=== PATIENT | female | born 1975 | race Caucasian/White ===

== ENCOUNTER → 2019-11-09 14:58 | Outpatient (BNVA) | payer OTHER, SELFPAY | PROVIDERS: Family Provider Nurse Practitioner Family; PCP Nurse Practitioner Family; Visit Provider Nurse Practitioner Women's Health | DX: Z11.3 Encounter for screening for infections with a predominantly sexual mode of transmission (principal); N76.0 Acute vaginitis; B96.89 Other specified bacterial agents as the cause of diseases classified elsewhere | CPT/HCPCS: 87491; 87591; 87661 ==

== ENCOUNTER 2020-04-14 08:20 | Outpatient (CLI) | payer OTHER, SELFPAY ==
--- NOTE | 2020-04-14 08:30 | MM_ITS ---
WS: [id number] BILATERAL DIGITAL SCREENING MAMMOGRAPHY WITH CAD CLINICAL INFORMATION: SCREENING HISTORY: Screening mammogram. No current complaints. COMPARISON: None. TECHNIQUE: Bilateral CC and MLO views. FINDINGS: The breasts are composed of heterogeneous fibroglandular density tissue, which can limit the detectio n of small underlying mass lesions. No suspicious mass, asymmetry, calcifications, or architectural d istortion. No evidence of malignancy. MM/[id number] IMPRESSION: BI-RADS: 1-Negative FOLLOW UP: 1 Year Follow-up Recommend return to annual screening mammography.
== END 2020-04-14 08:21 | disposition home or self-care (01) ==
LOC: RADSHAW 08:27
PROVIDERS: PCP Family Medicine; Visit Provider Family Medicine
DX: Z12.31 Encounter for screening mammogram for malignant neoplasm of breast (principal)
CPT/HCPCS: 77067

== ENCOUNTER → 2020-09-06 16:50 | Outpatient (BNVA) | payer OTHER, SELFPAY | PROVIDERS: PCP Family Medicine; Visit Provider Nurse Practitioner Women's Health | DX: Z11.3 Encounter for screening for infections with a predominantly sexual mode of transmission (principal); N89.8 Other specified noninflammatory disorders of vagina | CPT/HCPCS: 87491; 87591; 87661 ==

== ENCOUNTER → 2020-10-12 08:36 | Outpatient (BNVA) | payer OTHER, SELFPAY | PROVIDERS: PCP Family Medicine; Visit Provider Psychiatry & Neurology Neurology | DX: F41.1 Generalized anxiety disorder (principal) | CPT/HCPCS: 90791 ==

== ENCOUNTER → 2020-11-20 09:28 | Outpatient (BNVA) | payer OTHER, SELFPAY | PROVIDERS: PCP Family Medicine; Visit Provider Counselor Professional | DX: F41.1 Generalized anxiety disorder (principal) | CPT/HCPCS: 90834 ==

== ENCOUNTER → 2020-11-28 09:04 | Outpatient (BNVA) | payer OTHER, SELFPAY | PROVIDERS: PCP Family Medicine; Visit Provider Counselor Professional | DX: F41.1 Generalized anxiety disorder (principal) | CPT/HCPCS: 90834 ==

== ENCOUNTER → 2020-12-05 13:00 | Outpatient (BNVA) | payer OTHER, SELFPAY | PROVIDERS: PCP Family Medicine; Visit Provider Counselor Professional | DX: F41.1 Generalized anxiety disorder (principal) | CPT/HCPCS: 90834 ==

== ENCOUNTER → 2020-12-21 08:29 | Outpatient (BNVA) | payer OTHER, SELFPAY | PROVIDERS: PCP Family Medicine; Visit Provider Counselor Professional | DX: F41.1 Generalized anxiety disorder (principal) | CPT/HCPCS: 90834 ==

== ENCOUNTER → 2021-01-04 08:05 | Outpatient (BNVA) | payer OTHER, SELFPAY | PROVIDERS: PCP Family Medicine; Visit Provider Counselor Professional | DX: F41.1 Generalized anxiety disorder (principal) | CPT/HCPCS: 90834 ==

== ENCOUNTER → 2021-01-16 08:14 | Outpatient (BNVA) | payer OTHER, SELFPAY | PROVIDERS: PCP Family Medicine; Visit Provider Counselor Professional | DX: F41.1 Generalized anxiety disorder (principal) | CPT/HCPCS: 90834 ==

== ENCOUNTER → 2021-01-31 08:37 | Outpatient (BNVA) | payer OTHER, SELFPAY | PROVIDERS: PCP Family Medicine; Visit Provider Counselor Professional | DX: F41.1 Generalized anxiety disorder (principal) | CPT/HCPCS: 90834 ==

== ENCOUNTER → 2021-02-22 08:07 | Outpatient (BNVA) | payer OTHER, SELFPAY | PROVIDERS: PCP Family Medicine; Visit Provider Counselor Professional | DX: F41.1 Generalized anxiety disorder (principal) | CPT/HCPCS: 90834 ==

== ENCOUNTER → 2021-06-26 16:06 | Outpatient (BNVA) | payer OTHER, SELFPAY | PROVIDERS: PCP Family Medicine; Visit Provider Family Medicine | DX: Z11.52 Encounter for screening for COVID-19 (principal); Z20.822 Contact with and (suspected) exposure to COVID-19 | CPT/HCPCS: 87426 ==

== ENCOUNTER → 2021-07-12 08:15 | Outpatient (BNVA) | payer OTHER, SELFPAY | PROVIDERS: PCP Family Medicine; Visit Provider Nurse Practitioner Family | DX: Z20.822 Contact with and (suspected) exposure to COVID-19 (principal) | CPT/HCPCS: 87426 ==

== ENCOUNTER → 2021-08-15 09:19 | Outpatient (BNVA) | payer OTHER, SELFPAY | PROVIDERS: Visit Provider Family Medicine | DX: D50.9 Iron deficiency anemia, unspecified (principal); E03.9 Hypothyroidism, unspecified; F41.9 Anxiety disorder, unspecified; I10 Essential (primary) hypertension; Z76.89 Persons encountering health services in other specified circumstances; Z12.31 Encounter for screening mammogram for malignant neoplasm of breast; Z12.11 Encounter for screening for malignant neoplasm of colon; Z71.3 Dietary counseling and surveillance; Z79.899 Other long term (current) drug therapy | CPT/HCPCS: 80053; 80061; 84443; 85025 ==

== ENCOUNTER 2021-08-22 08:15 | Outpatient (CLI) | payer OTHER, SELFPAY ==
--- NOTE | 2021-08-22 08:30 | MM_ITS ---
WS: [id number] BILATERAL DIGITAL SCREENING MAMMOGRAPHY WITH CAD CLINICAL INFORMATION: Breast CA screening. HISTORY: Screening mammogram. No current complaints. COMPARISON: April 14, 2020 TECHNIQUE: Bilateral CC and MLO views. FINDINGS: Scattered fibroglandular densities bilaterally. No suspicious focal mass, asymmetry, calcifications, or architectural distortion. No evidence of malignancy. MM/[id number] IMPRESSION: BI-RADS: 1-Negative FOLLOW UP: 1 Year Follow-up Recommend return to annual screening mammography.
== END 2021-08-22 08:16 | disposition home or self-care (01) ==
PROVIDERS: PCP Family Medicine; Visit Provider Family Medicine
DX: Z12.31 Encounter for screening mammogram for malignant neoplasm of breast (principal)
CPT/HCPCS: 77067

== ENCOUNTER → 2021-11-07 13:51 | Outpatient (BNVA) | payer OTHER, SELFPAY | PROVIDERS: PCP Family Medicine; Visit Provider Family Medicine | DX: Z20.828 Contact with and (suspected) exposure to other viral communicable diseases (principal) | CPT/HCPCS: 87635 ==

== ENCOUNTER 2021-11-23 06:27 | Day surgery (SDC) | payer OTHER, SELFPAY ==
[2021-11-21 13:37] VITALS: BMI 35.9
[2021-11-23 06:43] VITALS: BP 135/106; PULSE 122; RESP 16; TEMP 36.3; O2SAT 98
--- NOTE | 2021-11-23 06:53 | ANES.PREANE2 ---
Pre-Anesthetic Assessment Height/Weight: Height 1.55 m Weight 86.183 kg Temp Pulse Resp BP Pulse Ox 97.4 F L 122 H 16 135/106 98 11/23/21 06:43 11/23/21 06:43 11/23/21 06:43 11/23/21 06:43 11/23/21 06:43 Preop Diagnosis: diagnostic Operation Date: 11/23/21 07:30 Proposed Procedures p Colonoscopy 89239 Z12.11(Not Applicable) - Kenneth Horne MD Was Beta Nicanor taken within 24 hours: Yes Was Clonidine taken within 24 hours: N/A Last intake: Intake Last Liquid Date 11/22/21 Last Liquid Time 22:30 Last Solid Date 11/21/21 Last Solid Time 20:30 Social No alcohol and No tobacco Exam alert and oriented x 3 Pulmonary Cough and None reported CV/HEM Hypertension PE 2019 None reported Hepatic None reported GI None reported Metabolic Thyroid Disease [facility] [place] None reported Neuropsych Anxiety Anesthetic Plan ASA status: 3 Anesthesia: Anesthesia Evaluation and MAC Risk of > 500 ml blood loss (7ml/kg in children): No Medications/Allergies Home Medications Medication Instructions Recorded Confirmed Last Taken Type meclizine 25 mg tablet 25 mg PO BID PRN 10 Days #20 tab 06/17/21 11/23/21 11/22/21 Rx naltrexone 8 mg-bupropion 90 mg 1 tab PO QAM #30 tab 08/15/21 11/23/21 11/22/21 Rx tablet,extended release (Contrave) buspirone 5 mg tablet 5 mg PO BID #180 tab 09/18/21 11/23/21 11/22/21 Rx chlorthalidone 25 mg tablet 25 mg PO DAILY #90 tab 09/18/21 11/23/21 11/22/21 Rx citalopram 40 mg tablet (Celexa) 40 mg PO DAILY #90 tab 09/18/21 11/23/21 11/22/21 Rx levothyroxine 150 mcg tablet 150 mcg PO DAILY #90 tab 09/18/21 11/23/21 11/22/21 Rx metoprolol succinate 25 mg 25 mg PO DAILY #90 tab 09/18/21 11/23/21 11/23/21 Rx tablet,extended release 24 hr sumatriptan succinate 100 mg 100 mg PO Q2H PRN #20 tab 0111/23/21 11/22/21 Rx tablet (Imitrex) Allergies Allergy/AdvReac Type Severity Reaction Status Date / Time No Known Allergies Allergy Verified 11/23/21 06:42 [facility] Anesthesia Medical History (Updated 09/12/21 @ 08:08 by Ozzie Alvares DO) Depression with anxiety History of pulmonary embolism Hypertension Hypothyroidism Migraines Vitamin A deficiency Surgical History History of bone marrow biopsy 2018-- negative for findings History of carpal tunnel surgery History of section History of total abdominal hysterectomy (~2018) LAVH converted to EVER with diagnostic laparoscopy; Ovaries sparred Completed due to fibroids Hx of tonsillectomy S/P cryotherapy of skin lesion Family History Mother Hypertension Family history of thyroid problem Father Hypertension Diabetes Grandfather No problems noted. Grandmother Diabetes Maternal grandmother Denies family history of Colon cancer Ovarian cancer CAD (coronary artery disease) Breast cancer Cancer Uterine cancer Stroke Social History Smoking and tobacco status: never smoked Alcohol intake: current Alcohol intake frequency: holidays/special occasions only Current gender identity: Female Additional social history: Tobacco use: denies Alcohol use: socially Drug use: denies Data Anesthesia Cardiac Studies: No Data to Display
[2021-11-23] MEDS: sodium chloride 0.9% 1,000 ML 30 ML IV (06:57)
--- NOTE | 2021-11-23 07:27 | P.HP_ITS ---
Same Day Surgery H&P Indication for Procedure/HPI DATE OF PROCEDURE: November 23, 2021 CHIEF COMPLAINT/INDICATIONFOR SURGICAL PROCEDURE: screening PREOP DIAGNOSIS: diagnostic PLANNED PROCEDURE: Operation Date: 11/23/21 07:30 Proposed Procedures p Colonoscopy 81474 Z12.11(Not Applicable) - Kenneth Horne MD Medications/Allergies* Allergies/Adverse Reactions Allergy/AdvReac Type Severity Reaction Status Date / Time No Known Allergies Allergy Verified 11/23/21 06:42 Current Medications: Generic Name Dose Route Start Last Admin Trade Name Freq PRN Reason Stop Dose Admin Sodium Chloride 1,000 mls @ 30 mls/hr 11/23/21 06:30 11/23/21 06:57 Sodium Chloride 0.9% IV 11/24/21 06:29 30 mls/hr .Q24H ENMANUEL Administration Pertinent History/Comorbid Conditions* Medical History (Updated 09/12/21 @ 08:08 by Ozzie Alvares DO) Depression with anxiety History of pulmonary embolism Hypertension Hypothyroidism Migraines Vitamin A deficiency Surgical History (Updated 09/06/20 @ 17:20 by OTIS WashburnN, WHKONG) History of bone marrow biopsy 2018-- negative for findings History of carpal tunnel surgery History of section History of total abdominal hysterectomy (~2019) LAVH converted to EVER with diagnostic laparoscopy; Ovaries sparred Completed due to fibroids Hx of tonsillectomy S/P cryotherapy of skin lesion Family History (Updated 09/06/20 @ 15:52 by Светлана Tellez) Diabetes Father Grandmother Maternal grandmother Family history of thyroid problem Mother Hypertension Mother Father Denies family history of Colon cancer Ovarian cancer CAD (coronary artery disease) Breast cancer Cancer Uterine cancer Stroke Social History Smoking and tobacco status: never smoked Alcohol intake: current Alcohol intake frequency: holidays/special occasions only Current gender identity: Female Additional social history: Tobacco use: denies Alcohol use: socially Drug use: denies Pertinent Exam Findings alert, oriented x 3 and regular rate & rhythm Recommendations Surgery/Procedure today Coding Level of Care Code Acute 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
[2021-11-23 07:53] VITALS: BP 110/57; PULSE 71; RESP 12; TEMP 36.2; O2SAT 93
[2021-11-23 08:23] VITALS: BP 117/70; PULSE 77; RESP 16; O2SAT 100
--- NOTE | 2021-11-23 12:16 | ANE.PACU2 ---
Inpatient post-anesthesia follow up: Airway intact: Yes Vital signs: Temperature 97.2 F Pulse Rate 77 Respiratory Rate 16 Blood Pressure 117/70 Pulse Oximetry 100 Oxygen Delivery Me thod Room Air Oxygen Flow Rate Fraction of Inspir ed Oxygen Hydration adequate: Yes Nausea and vomiting: No Pain level: 1 Mental status: Baseline
== END 2021-11-23 08:35 | disposition home or self-care (01) ==
PROVIDERS: PCP Family Medicine; Visit Provider Surgery
PROC: 0DJD8ZZ Inspection of Lower Intestinal Tract, Via Natural or Artificial Opening Endoscopic (ICD-10-PCS; CPT 45378; principal; 2021-11-23 07:30)
DX: Z12.11 Encounter for screening for malignant neoplasm of colon (principal); I10 Essential (primary) hypertension; E03.9 Hypothyroidism, unspecified; F32.9 Major depressive disorder, single episode, unspecified; F41.9 Anxiety disorder, unspecified
CPT/HCPCS: 45378; J2704; J7030

== ENCOUNTER 2022-03-12 08:39 | Outpatient (CLI) | payer OTHER, SELFPAY ==
[2022-03-12 09:38] LABS: Free T4 Free Thyroxine 1.77 ng/dL (0.82-1.77); Thyroid Stimulating Hormone 0.05 uIU/mL (0.27-4.20)
== END 2022-03-12 08:40 | disposition home or self-care (01) ==
PROVIDERS: PCP Family Medicine; Visit Provider Family Medicine
DX: E03.9 Hypothyroidism, unspecified (principal); I10 Essential (primary) hypertension; R63.4 Abnormal weight loss; Z71.3 Dietary counseling and surveillance
CPT/HCPCS: 36415; 84439; 84443

== ENCOUNTER 2022-07-24 13:33 | Outpatient (CLI) | payer OTHER, SELFPAY ==
[2022-07-24 14:51] LABS: Alanine Aminotransferase 22 U/L (0-33); Albumin Level 4.3 g/dL (3.5-5.2); Alkaline Phosphatase 104 U/L (35-105); Anion Gap 17.5 (5-19); Aspartate Amino Transferase 24 U/L (0-32); Blood Urea Nitrogen 13 mg/dL (6-20); Calcium 9.5 mg/dL (8.5-10.5); Carbon Dioxide 31 mmol/L (22-29); Chloride 96 mmol/L (98-107); Chol HDL Ratio 4.47 mg/dL (0.0-4.40); Cholesterol 237 mg/dL (0-200); Free T4 Free Thyroxine 0.54 ng/dL (0.82-1.77); Globulin 3.1 g/dL (1.3-4.6); Glomerular Filtration Rate 76.9 mL/min (90-130); Glucose 114 mg/dL (65-115); HDL Cholesterol 53 mg/dL (60-100); LDL Cholesterol Calculated 133 mg/dL (50-129); LDL HDL Ratio 2.51 RATIO (0.00-3.22); Osmolality Calculated 293 mOsm/kg (285-295); Potassium 3.5 mmol/L (3.5-5.1); Sodium 141 mmol/L (136-145); Thyroid Stimulating Hormone 22.34 uIU/mL (0.27-4.20); Total Bilirubin 0.4 mg/dL (0.15-1.2); Total Protein 7.4 g/dL (6.6-8.7); Triglycerides 255 mg/dL (0-150)
== END 2022-07-24 13:34 | disposition home or self-care (01) ==
LOC: LAB 13:36
PROVIDERS: PCP Family Medicine; Visit Provider Family Medicine
DX: E03.9 Hypothyroidism, unspecified (principal); I10 Essential (primary) hypertension; F41.9 Anxiety disorder, unspecified; Z13.220 Encounter for screening for lipoid disorders; Z13.6 Encounter for screening for cardiovascular disorders
CPT/HCPCS: 80053; 80061; 84439; 84443

== ENCOUNTER → 2022-10-06 16:40 | Outpatient (BNVA) | payer OTHER, SELFPAY | PROVIDERS: PCP Family Medicine; Visit Provider Registered Nurse Neonatal Intensive Care | DX: R50.9 Fever, unspecified (principal); J10.1 Influenza due to other identified influenza virus with other respiratory manifestations | CPT/HCPCS: 87400 ==

== ENCOUNTER → 2022-11-25 08:33 | Outpatient (BNVA) | payer OTHER, SELFPAY | PROVIDERS: PCP Family Medicine; Visit Provider Family Medicine | DX: E03.9 Hypothyroidism, unspecified (principal); I10 Essential (primary) hypertension; F41.9 Anxiety disorder, unspecified; Z13.220 Encounter for screening for lipoid disorders; Z13.6 Encounter for screening for cardiovascular disorders | CPT/HCPCS: 80048; 80053; 80061; 84439; 84443 ==

== ENCOUNTER 2023-01-15 07:46 | Outpatient (CLI) | payer OTHER, SELFPAY ==
--- NOTE | 2023-01-15 08:07 | MM_ITS ---
WS: [id number] BILATERAL SCREENING DIGITAL TOMOSYNTHESIS MAMMOGRAM WITH CAD HISTORY: SCREEN COMPARISON: 08/22/2021 and 04/14/2020 Bilateral CC and MLO views with tomosynthesis and synthetic mammography submitted. Computer aided det ection analyzed. Breast composition: The breasts are heterogeneously dense, which may obscure small masses. No suspici ous masses, microcalcifications or architectural distortion. MM/[place] [id number] IMPRESSION: BI-RADS: 1-Negative FOLLOW UP: 1 Year Follow-up
== END 2023-01-15 07:47 | disposition home or self-care (01) ==
PROVIDERS: PCP Family Medicine; Visit Provider Family Medicine
DX: Z12.31 Encounter for screening mammogram for malignant neoplasm of breast (principal)
CPT/HCPCS: 77063; 77067

== ENCOUNTER 2023-05-15 13:06 | Outpatient (CLI) | payer OTHER, SELFPAY ==
[2023-05-15 14:14] LABS: Anion Gap 13.1 (5-19); Blood Urea Nitrogen 8 mg/dL (6-20); Calcium 8.9 mg/dL (8.5-10.5); Carbon Dioxide 27 mmol/L (22-29); Chloride 101 mmol/L (98-107); Glomerular Filtration Rate 76.9 mL/min (90-130); Glucose 107 mg/dL (65-115); Osmolality Calculated 283 mOsm/kg (285-295); Potassium 4.1 mmol/L (3.5-5.1); Sodium 137 mmol/L (136-145)
[2023-05-15 14:20] LABS: Free T4 Free Thyroxine 0.54 ng/dL (0.82-1.77)
== END 2023-05-15 13:07 | disposition home or self-care (01) ==
PROVIDERS: PCP Family Medicine; Visit Provider Family Medicine
DX: E03.9 Hypothyroidism, unspecified (principal); I10 Essential (primary) hypertension; D50.9 Iron deficiency anemia, unspecified
CPT/HCPCS: 36415; 80048; 84439

== ENCOUNTER 2023-06-27 08:51 | Outpatient (CLI) | payer OTHER, SELFPAY ==
[2023-06-27 10:15] LABS: Free T4 Free Thyroxine 1.46 ng/dL (0.82-1.77); Thyroid Stimulating Hormone 0.67 uIU/mL (0.27-4.20)
== END 2023-06-27 08:52 | disposition home or self-care (01) ==
PROVIDERS: PCP Family Medicine; Visit Provider Family Medicine
DX: E03.9 Hypothyroidism, unspecified (principal)
CPT/HCPCS: 36415; 84439; 84443

== ENCOUNTER → 2023-12-16 08:11 | Outpatient (BNVA) | payer OTHER, SELFPAY | PROVIDERS: PCP Family Medicine; Visit Provider Family Medicine | DX: I10 Essential (primary) hypertension (principal) | CPT/HCPCS: 80048; 80061; 84443 ==

== ENCOUNTER 2024-02-25 07:42 | Outpatient (CLI) | payer OTHER, SELFPAY ==
--- NOTE | 2024-02-25 07:47 | MM_ITS ---
WS: [id number] BILATERAL SCREENING DIGITAL TOMOSYNTHESIS MAMMOGRAM WITH CAD HISTORY: SCREENING COMPARISON: 01/15/2023, 08/22/2021 Bilateral CC and MLO views with tomosynthesis and synthetic mammography submitted. Computer aided det ection analyzed. Breast composition: The breasts are heterogeneously dense, which may obscure small masses. No suspici ous masses, microcalcifications or architectural distortion. MM/[id number] IMPRESSION: BI-RADS: 1-Negative FOLLOW UP: 1 Year Follow-up
== END 2024-02-25 07:43 | disposition home or self-care (01) ==
PROVIDERS: PCP Family Medicine; Visit Provider Family Medicine
DX: Z12.31 Encounter for screening mammogram for malignant neoplasm of breast (principal); R92.333 Mammographic heterogeneous density, bilateral breasts
CPT/HCPCS: 77063; 77067

== ENCOUNTER → 2024-08-25 11:00 | Outpatient (BNVA) | payer OTHER, SELFPAY | PROVIDERS: PCP Family Medicine; Visit Provider Family Medicine | DX: R79.89 Other specified abnormal findings of blood chemistry (principal); I10 Essential (primary) hypertension; E03.9 Hypothyroidism, unspecified; G47.33 Obstructive sleep apnea (adult) (pediatric); E55.9 Vitamin D deficiency, unspecified; N95.1 Menopausal and female climacteric states | CPT/HCPCS: 80053; 80061; 82306; 82607; 84439; 84443; 85025 ==

== ENCOUNTER 2024-09-06 08:25 | Outpatient (CLI) | payer OTHER, SELFPAY ==
[2024-09-06 08:58] LABS: Anion Gap 13.8 (5-19); Blood Urea Nitrogen 10 mg/dL (6-20); Carbon Dioxide 30 mmol/L (22-29); Chloride 95 mmol/L (98-107); Glomerular Filtration Rate 88.9 mL/min (90-130); Glucose 150 mg/dL (65-115); Osmolality Calculated 284 mOsm/kg (285-295); Sodium 136 mmol/L (136-145)
[2024-09-06 09:18] LABS: Potassium 2.8 mmol/L (3.5-5.1)
== END 2024-09-06 08:26 | disposition home or self-care (01) ==
LOC: LAB 08:25
PROVIDERS: PCP Family Medicine; Visit Provider Family Medicine
DX: E87.6 Hypokalemia (principal)
CPT/HCPCS: 36415; 80048

== ENCOUNTER 2024-09-13 08:11 | Outpatient (CLI) | payer OTHER, SELFPAY ==
[2024-09-13 09:04] LABS: Estmated Average Glucose 114; Hemoglobin A1C 5.6 % (4.0-6.0)
[2024-09-13 09:05] LABS: Blood Urea Nitrogen 11 mg/dL (6-20); Calcium 9.5 mg/dL (8.5-10.5); Carbon Dioxide 30 mmol/L (22-29); Chloride 94 mmol/L (98-107); Glomerular Filtration Rate 76.2 mL/min (90-130); Glucose 154 mg/dL (65-115); Osmolality Calculated 282 mOsm/kg (285-295); Sodium 135 mmol/L (136-145)
== END 2024-09-13 08:12 | disposition home or self-care (01) ==
LOC: LAB 08:12
PROVIDERS: PCP Family Medicine; Visit Provider Family Medicine
DX: E87.6 Hypokalemia (principal); R73.9 Hyperglycemia, unspecified
CPT/HCPCS: 36415; 80048; 83036

== ENCOUNTER 2024-10-11 08:17 | Outpatient (CLI) | payer OTHER, SELFPAY ==
[2024-10-11 09:40] LABS: Vitamin B12 358 pg/mL (232-1245)
== END 2024-10-11 08:18 | disposition home or self-care (01) ==
LOC: LAB 08:19
PROVIDERS: PCP Family Medicine; Visit Provider Family Medicine
DX: R79.89 Other specified abnormal findings of blood chemistry (principal); I10 Essential (primary) hypertension; E03.9 Hypothyroidism, unspecified; G47.33 Obstructive sleep apnea (adult) (pediatric)
CPT/HCPCS: 36415; 82607; 84132

== ENCOUNTER 2024-10-25 08:25 | Emergency (ER) | payer OTHER, SELFPAY ==
[2024-10-25 08:37] VITALS: BP 172/78; PULSE 92; RESP 19; TEMP 36.6; O2SAT 97; BMI 39.6
--- NOTE | 2024-10-25 08:40 | ED_ITS ---
HPI - Headache General: Chief Complaint: Headache Stated Complaint: migraine Time Seen by Provider: 10/25/24 08:33 Source: patient Mode of arrival: ambulatory Limitations: no limitations History of Present Illness: 49-year-old female has a history of migr aines in the past states she has had a migraine headache since this morning states pain sharp in nature she is also had vomiting states she had vomited up her migraine medicine she denies any fever states feels like her previous migraine headaches. She does have photophobia and phonophobia Associated symptoms: Deny chest pain, fever(s), nausea, rash or vomiting Related Data Home Medications Medication Instructions Recorded Confirmed buspirone 5 mg tablet 5 mg PO BID 10/25/24 10/25/24 citalopram 40 mg tablet 40 mg PO DAILY 10/25/24 10/25/24 levothyroxine 150 mcg tablet 150 mcg PO DAILY 10/25/24 10/25/24 metoprolol succinate 25 mg 25 mg PO DAILY 10/25/24 10/25/24 tablet,extended release 24 hr sumatriptan succinate 100 mg tablet See Rx Instructions .Route .COMPLEX 10/25/24 10/25/24 Previous Rx's Medication Instructions Recorded potassium chloride 10 mEq 10 meq PO DAILY #30 tabs 09/27/24 tablet,extended release Allergies Allergy/AdvReac Type Severity Reaction Status Date / Time No Known Allergies Allergy Verified 08/25/24 08:29 Review of Systems Const: Denies: fever(s), chills, body aches or change in appetite Eyes: Denies: blurry vision or eye discomfort ENMT: Denies: throat pain or dental pain Card: Denies: chest pain Resp: Denies: dyspnea GI: Denies: abdominal pain, nausea, vomiting or diarrhea Musc: Denies: neck pain or back pain Skin/Breast: Denies: rash Neuro: Reports: headache(s) PFSH ED PFSH: Medical History Depression with anxiety Hypothyroidism Hypertension Migraines History of pulmonary embolism Vitamin A deficiency Surgical History Status post colonoscopy (11/23/21) normal - 10 years History of bone marrow biopsy 2018-- negative for findings S/P cryotherapy of skin lesion History of section History of total abdominal hysterectomy (~2018) LAVH converted to EVER with diagnostic laparoscopy; Ovaries sparred Completed due to fibroids Hx of tonsillectomy History of carpal tunnel surgery Family History Mother Hypertension Family history of thyroid problem Father Hypertension Diabetes Grandfather No problems noted. Grandmother Diabetes Maternal grandmother Denies family history of Colon cancer Ovarian cancer CAD (coronary artery disease) Breast cancer Cancer Uterine cancer Stroke Social History Smoking and tobacco/nicotine status: never used tobacco/nicotine Alcohol intake: current Alcohol intake frequency: holidays/special occasions only Substance/Drug Use: never Additional social history: Tobacco use: denies Alcohol use: socially Drug use: denies Current gender identity: Female Female Reproductive History: Spontaneous abortions: No Physical Exam Const: COMMON NORMALS: no acute distress, patient oriented x3 and healthy appearing HENMT: COMMON NORMALS: normocephalic and atraumatic HEAD & SCALP: normocephalic and atraumatic Eye: COMMON NORMALS: Equal, round and reactive pupils present and conjunctivae normal CONJUNCTIVA: Yes conjunctivae normal PUPIL: Yes Equal, round and reactive pupils present Neck/C-Spine: COMMON NORMALS: full ROM and supple Chest: COMMONS NORMALS: normal inspection of the chest Resp: COMMON NORMALS: normal respiratory effort Cardio: COMMON NORMALS: regular rate RATE: regular rate Extremity: COMMON NORMALS: normal to inspection and full ROM Neuro: COMMON NORMALS: patient oriented x3, moves all extremities and no focal motor deficits Psych: COMMON NORMALS: mental status grossly normal, Normal thought process present and cooperative THOUGHT PROCESS: Normal thought process present Skin: COMMON NORMALS: no rashes or lesions noted and no wounds GENERAL SKIN EXAM: no rashes or lesions noted Course Vital Signs: Vital signs: Vital Signs Temperature 97.9 F 10/25/24 08:37 Pulse Rate 92 10/25/24 08:37 Respiratory Rate 19 H 10/25/24 08:37 Blood Pressure 172/78 10/25/24 08:37 Pulse Oximetry 97 10/25/24 08:37 Oxygen Delivery Me thod Room Air 10/25/24 08:37 MDM - Headache Medical Decision Making Patient presents here with a headache consistent with a migraine headache she feels much improved here after Reglan Benadryl Toradol no signs of subarachnoid hemorrhage no signs of meningitis she is stable for discharge. Medical Records I reviewed the patient's medical records. No radiology studies performed this visit Discharge Plan Discharge Patient Disposition: Home Clinical Impression: Headache Condition: Stable Prescriptions: No Action potassium chloride 10 mEq tablet extended release 10 meq PO DAILY Qty: 30 5RF buspirone 5 mg tablet 5 mg PO BID citalopram 40 mg tablet 40 mg PO DAILY sumatriptan succinate 100 mg tablet See Rx Instructions .ROUTE .COMPLEX Rx Instructions: TAKE ONE TABLET BY MOUTH every TWO hours NEEDED FOR migraine HEADACHE. 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
[2024-10-25] MEDS: ketorolac 30 mg/mL INJ IVP (08:49)
[2024-10-25] MEDS: diphenhydrAMINE 50 mg/mL SDV 1mL IVP (08:51)
[2024-10-25] MEDS: metoclopramide 5 mg/mL SDV 2 mL 10 MG IVP (08:52)
--- NOTE | 2024-10-25 09:27 | PC.PHAR ---
Pt states she attempted to take morning meds but threw them up immediately.
[2024-10-25 09:35] VITALS: BP 142/76; PULSE 76; O2SAT 95
[2024-10-25 09:38] VITALS: BP 142/76; PULSE 76; O2SAT 95
== END 2024-10-25 09:50 | disposition home or self-care (01) ==
PROVIDERS: Emergency Provider Emergency Medicine; PCP Family Medicine
DX: R51.9 Headache, unspecified (principal); I10 Essential (primary) hypertension
CPT/HCPCS: 96374; 96375; 99284; J1200; J1885; J2765

== ENCOUNTER → 2024-11-18 08:42 | Outpatient (BNVA) | payer BC, SELFPAY | PROVIDERS: PCP Family Medicine; Visit Provider Family Medicine | DX: R32 Unspecified urinary incontinence (principal); E87.6 Hypokalemia; E55.9 Vitamin D deficiency, unspecified; E03.9 Hypothyroidism, unspecified | CPT/HCPCS: 80048; 81003; 82306; 84439; 84443; 87086 ==

== ENCOUNTER 2025-04-25 16:09 | Outpatient (CLI) | payer OTHER, SELFPAY ==
[2025-04-25 17:03] LABS: Basophils % 0.4 %; Eosinophils # 0.3 10^3/uL (0.0-0.8); Eosinophils % 3.2 %; Hematocrit 39.4 % (36-47); Lymphocytes # 1.9 10^3/uL (0.8-4.8); Lymphocytes % 24.5 %; Mean Corpuscular HGB Conc 33.8 g/dL (30-55); Mean Corpuscular Hemoglobin 28.1 pg (27-33); Mean Corpuscular Volume 83.1 fl (85-98); Monocytes # 0.4 10^3/uL (0.2-0.9); Monocytes % 5.3 %; Neutrophils # 5.16 10^3/uL (1.8-7.7); Neutrophils % 66.5 %; Nucleated Red Blood Cells % 0 %; Platelet Count 276 10^3/cmm (157-399); Red Blood Count 4.74 10^6/uL (3.85-5.65); Red Cell Distribution Width 12.1 % (12.1-15.1); White Blood Count 7.76 10^3/uL (3.29-11.43)
[2025-04-25 18:02] LABS: Alanine Aminotransferase 11 U/L (0-33); Albumin Level 4.3 g/dL (3.5-5.2); Alkaline Phosphatase 76 U/L (35-105); Anion Gap 17.9 (5-19); Aspartate Amino Transferase 16 U/L (0-32); Blood Urea Nitrogen 12 mg/dL (6-20); Calcium 9.3 mg/dL (8.5-10.5); Carbon Dioxide 22 mmol/L (22-29); Chloride 103 mmol/L (98-107); Globulin 2.9 g/dL (1.3-4.6); Glomerular Filtration Rate 88.9 mL/min (90-130); Glucose 83 mg/dL (65-115); Lipase 33 U/L (13-60); Osmolality Calculated 287 mOsm/kg (285-295); Potassium 3.9 mmol/L (3.5-5.1); Sodium 139 mmol/L (136-145); Total Bilirubin 0.5 mg/dL (0.15-1.2); Total Protein 7.2 g/dL (6.6-8.7)
[2025-04-27 05:20] LABS: Amylase 63 U/L (21-101)
== END 2025-04-25 16:10 | disposition home or self-care (01) ==
PROVIDERS: PCP Family Medicine; Visit Provider Family Medicine
DX: R11.2 Nausea with vomiting, unspecified (principal); R10.11 Right upper quadrant pain; R10.13 Epigastric pain
CPT/HCPCS: 36415; 80053; 82150; 83690; 85025

== ENCOUNTER 2025-04-26 06:51 | Outpatient (CLI) | payer OTHER, SELFPAY ==
--- NOTE | 2025-04-26 07:15 | US_ITS ---
WS: [id number] RIGHT UPPER QUADRANT ULTRASOUND HISTORY: R10.11 - Right upper quadrant pain COMPARISON: 04/02/2019 Liver: 14.3 cm in length. Normal size liver and echogenicity. No bile duct dilatation or mass. Portal Vein: Normal hepatopetal flow with monophasic waveform. Gallbladder: Normally distended gallbladder with no stones or wall thickening. CBD: 0.3 cm Pancreas: Normal size and echogenicity. Right kidney: 9.0 cm in length. Normal size and echogenicity. No hydronephrosis or mass. Aorta and IVC: Unremarkable abdominal aorta and IVC. No ascites. US/US abdomen limited [id number] IMPRESSION: Normal right upper quadrant ultrasound.
== END 2025-04-26 06:52 | disposition home or self-care (01) ==
LOC: RAD 06:51
PROVIDERS: PCP Family Medicine; Visit Provider Family Medicine
DX: R10.11 Right upper quadrant pain (principal); R10.13 Epigastric pain; R11.2 Nausea with vomiting, unspecified
CPT/HCPCS: 76705

== ENCOUNTER 2025-05-03 07:33 | Outpatient (CLI) | payer OTHER, SELFPAY ==
--- NOTE | 2025-05-03 08:00 | NM_ITS ---
WS: [id number] NUCLEAR MEDICINE HIDA SCAN CLINICAL INFORMATION: biliary dyskinesia TECHNIQUE: Following intravenous administration of 7.9 mCi of technetium 99m mebrofenin, images of the abdomen were obtained over the course of 60 minutes. Next, gallbladder ejection fraction was determined by obtaining preprandial and one-hour postprandial images of the gallbladder following oral ingestion of Ensure. FINDINGS: Normal hepatic uptake at 5 minutes. Gallbladder is visualized by 15 minutes. No evidence of acute cholecystitis. Normal hepatic excretion. Normal common bile duct and small bowel activity. Gallbladder ejection fraction 90% within normal limits. No evidence of chronic cholecystitis. NM/NM hepatobiliary w phar* [id number] IMPRESSION: 1. No evidence of acute or chronic cholecystitis. 2. Normal gallbladder ejection fraction.
== END 2025-05-03 07:34 | disposition home or self-care (01) ==
LOC: RAD 07:33
PROVIDERS: PCP Family Medicine; Visit Provider Surgery
DX: K82.8 Other specified diseases of gallbladder (principal)
CPT/HCPCS: 78227; A9537

== ENCOUNTER 2025-05-16 09:55 | Day surgery (SDC) | payer OTHER, SELFPAY ==
[2025-05-16] VITALS (15 sets, daily range): BP systolic 89–163; BP diastolic 49–91; PULSE 79–95; RESP 16–24; TEMP 36.1–36.2; O2SAT 92–99; BMI 35.5
--- NOTE | 2025-05-16 10:41 | P.HPUD_ITS ---
Surgery/Procedure H&P Update DATE OF PROCEDURE: May 16, 2025 DATE H&P PERFORMED: 05/03/25 H&P UPDATE INFORMATION: I have reviewed H&P completed within last 30 days, I have examined patient prior to procedure, No changes to prior documentation, H&P is in [facility] EMR on date indicated and Risks and benefits of the procedure reviewed PLANNED PROCEDURE: Operation Date: 05/16/25 13:55 Proposed Procedures p Laparoscopic POSSIBLE OPEN Cholecystectomy(Not Applicable) - Gato Serrato MD
--- NOTE | 2025-05-16 10:55 | ANES.PREANE2 ---
Pre-Anesthetic Assessment Height/Weight: Height 1.55 m Weight 85.275 kg Temp Pulse Resp BP Pulse Ox O2 Del Method 97.1 F L 79 18 163/81 99 Room Air 05/16/25 10:39 05/16/25 10:39 05/16/25 10:39 05/16/25 10:39 05/16/25 10:39 05/16/25 10:39 Operation Date: 05/16/25 13:55 Proposed Procedures p Laparoscopic POSSIBLE OPEN Cholecystectomy(Not Applicable) - Gato Serrato MD Familial anesthetic complications: None Was Beta Nicanor taken within 24 hours: N/A Was Clonidine taken within 24 hours: N/A Last intake: Intake Last Liquid Date 05/15/25 Last Liquid Time 23:00 Last Solid Date 05/15/25 Last Solid Time 16:30 Social No alcohol and No tobacco Exam alert, oriented x 3, clear to auscultation bilaterally and regular rate & rhythm Airway Mallampati: Class III Dentition: chipped GI Gastroesophageal Reflux Disease Metabolic Morbid Obesity and Thyroid Disease Anesthetic Plan ASA status: 3 Anesthesia: General Risk of > 500 ml blood loss (7ml/kg in children): No Medications/Allergies Home Medications ?Medication ?Instructions ?Recorded ?Confirmed ?Last Taken ?Type potassium chloride 10 mEq 10 meq PO DAILY #30 tabs 09/27/24 05/13/25 05/15/25 07:30 Rx tablet,extended release buspirone 5 mg tablet 5 mg PO BID 10/25/24 05/13/25 05/15/25 09:30 History citalopram 40 mg tablet 40 mg PO DAILY 10/25/24 05/13/25 05/15/25 09:30 History sumatriptan succinate 100 mg tablet See Rx Instructions .Route .COMPLEX 10/25/24 05/13/25 05/15/25 07:30 History levothyroxine 150 mcg tablet See Rx Instructions .Route 02/17/25 05/13/25 05/15/25 09:30 Rx .COMPLEX #90 tabs metoprolol succinate 25 mg See Rx Instructions .Route 03/18/25 05/13/25 05/16/25 08:30 Rx tablet,extended release 24 hr .COMPLEX #90 tabs pantoprazole 40 mg tablet,delayed 40 mg PO DAILY #60 tabs 04/26/25 05/13/25 05/15/25 07:30 Rx release Allergies Allergy/AdvReac Type Severity Reaction Status Date / Time No Known Allergies Allergy Verified 05/03/25 15:19 Current Medications Generic Name Dose Route Start Last Admin Trade Name Kyle PRN Reason Stop Dose Admin Sodium Chloride 1,000 mls @ 30 mls/hr 05/16/25 10:45 05/16/25 10:52 Sodium Chloride 0.9% IV 05/17/25 10:44 30 mls/hr .Q24H ENMANUEL Administration PFSH Anesthesia Medical History (Updated 05/03/25 @ 15:26 by Gato Serrato MD) Depression with anxiety Hypothyroidism Hypertension Migraines History of pulmonary embolism Vitamin A deficiency Surgical History Status post colonoscopy (11/23/21) normal - 10 years History of bone marrow biopsy 2018-- negative for findings S/P cryotherapy of skin lesion History of section History of total abdominal hysterectomy (~2019) LAVH converted to EVER with diagnostic laparoscopy; Ovaries sparred Completed due to fibroids Hx of tonsillectomy History of carpal tunnel surgery Family History Mother Hypertension Family history of thyroid problem Father Hypertension Diabetes Grandfather No problems noted. Grandmother Diabetes Maternal grandmother Denies family history of Colon cancer Ovarian cancer CAD (coronary artery disease) Breast cancer Cancer Uterine cancer Stroke Social History Smoking and tobacco/nicotine status: never used tobacco/nicotine Alcohol intake: current Alcohol intake frequency: holidays/special occasions only Substance/Drug Use: never Additional social history: Tobacco use: denies Alcohol use: socially Drug use: denies Current gender identity: Female Female Reproductive History Spontaneous abortions: No
[2025-05-16] MEDS: ceFAZolin 2,000 mg SDV 2000 MG IVP (12:20)
[2025-05-16] MEDS: BUPivacaine 0.25% INJ 10 mL INJECTION (12:50)
[2025-05-16] MEDS: lidocaine-epi 1% 20 mL INJ INJECTION (12:50)
--- NOTE | 2025-05-16 13:19 | PM.OP ---
Operative Report Date of procedure: May 16, 2025 Pre-op diagnosis: History of biliary colic Post-op diagnosis: Same Post-op findings: Normal biliary anatomy Procedure done: Laparoscopic cholecystectomy Surgeon: Gato Serrato MD Cutter Machine Tender: JIMENA OR Staff Estimated blood loss: 10 Complications: none apparent Brief History: This a 49-year-old female who presents to my office for evaluation for right upper quadrant abdominal pain after eating, after workup was completed we discussed with patient the possibility of proceeding with laparoscopic possible open cholecystectomy for persistent right upper quadrant pain and biliary colic. She shows understanding agrees with the plan Procedure: Patient was brought into the OR, she was placed in a supine position. General anesthesia was given. The abdomen was prepped and draped in the usual sterile fashion. A timeout was conducted. I accessed the abdomen via a 5 mm Optiview port in the left upper quadrant. Initial pneumoperitoneum was obtained and no evidence of visceral injury during entry was noted. At 12 mm trocar was placed in the supraumbilical position under direct visualization. Additional 5 mm trocars were placed in the epigastrium right upper quadrant and right flank under direct visualization. The gallbladder was grasped from the fundus and retracted cephalad, I then grasped the infundibulum and retracted in the inferolateral direction exposing the hepatocystic triangle. The peritoneum anterior to the hepatocystic triangle was opened with electrocautery, I carried this opening in the medial and lateral direction to the edges of the liver and then on the sides of the gallbladder to allow for better exposure. With careful blunt dissection as well as electrocautery I was able to encircle the cystic duct and artery, I also elevated lower third of the gallbladder from the liver bed, thus creating a critical view of safety. The cystic duct and artery were double clipped proximally and single clipped distally and transected. The gallbladder was removed from the liver bed using electrocautery. The gallbladder was retrieved in an Endo Catch bag via the umbilical trocar site. The liver bed and clips were inspected the area was hemostatic, there was no evidence of bile leak the clips appeared to be in good position. The umbilical trocar was removed and umbilical trocar site was closed with a 0 Vicryl Alonzo-Jose suture passer under direct visualization. The epigastrium right upper quadrant right flank trocars were removed under direct visualization, the left upper quadrant trocar was used to evacuate the pneumoperitoneum and subsequently removed. Local anesthesia was infiltrated. Hemostasis was achieved from the trocar sites. The wounds were closed in layers using #3-0 Vicryl for the subcutaneous tissue #4 Monocryl for the skin. At the end of the procedure all counts were correct, the patient tolerated well the procedure was transferred to the PACU in stable condition.
[2025-05-16] MEDS: fentaNYL 50 mcg/mL INJ 2mL IVP ×2 (13:44→13:50)
[2025-05-16] MEDS: HYDROmorphone 1 mg/mL INJ 1ml 0.5 MG IVP (14:18)
[2025-05-16] MEDS: oxyCODONE 5 mg IR Tab/Cap PO (14:46)
--- NOTE | 2025-05-16 15:25 | ANE.PACU2 ---
Inpatient post-anesthesia follow up: Airway intact: Yes Vital signs: Temperature 97.1 F Pulse Rate 88 Respiratory Rate 16 Blood Pressure 114/91 Pulse Oximetry 94 Oxygen Delivery Me thod Room Air Oxygen Flow Rate 6 Fraction of Inspir ed Oxygen Hydration adequate: Yes Nausea and vomiting: No Pain level: 1 Mental status: Baseline
== END 2025-05-16 15:23 | disposition home or self-care (01) ==
PROVIDERS: PCP Family Medicine; Visit Provider Surgery
PROC: 0FT44ZZ Resection of Gallbladder, Percutaneous Endoscopic Approach (ICD-10-PCS; CPT 47562; principal; 2025-05-16 13:55)
DX: K81.1 Chronic cholecystitis (principal); K21.9 Gastro-esophageal reflux disease without esophagitis; E66.01 Morbid (severe) obesity due to excess calories; Z68.35 Body mass index [BMI] 35.0-35.9, adult; E03.9 Hypothyroidism, unspecified; F41.8 Other specified anxiety disorders; Z86.711 Personal history of pulmonary embolism; I10 Essential (primary) hypertension
CPT/HCPCS: 47562; 88304; A4216; J0690; J1100; J1171; J1885; J2250; J2405; J2704; J3010; J3490; J7030; J9999

== ENCOUNTER 2025-08-26 08:33 | Outpatient (CLI) | payer OTHER, SELFPAY ==
--- NOTE | 2025-08-26 08:38 | MM_ITS ---
WS: [id number] BILATERAL SCREENING DIGITAL TOMOSYNTHESIS MAMMOGRAM WITH CAD HISTORY: SCREENING COMPARISON: 02/25/2024, 01/15/2023, 08/22/2021 Bilateral CC and MLO views with tomosynthesis and synthetic mammography submitted. Computer aided detection analyzed. Breast composition: The breasts are extremely dense, which lowers the sensitivity of mammography. No suspicious masses, microcalcifications or architectural distortion. MM/MM scr BI tomosynthesis [id number] IMPRESSION: BI-RADS: 2 - Benign FOLLOW UP: 1 Year Follow-up
== END 2025-08-26 08:34 | disposition home or self-care (01) ==
LOC: RAD 08:34
PROVIDERS: PCP Family Medicine; Visit Provider Family Medicine
DX: Z12.31 Encounter for screening mammogram for malignant neoplasm of breast (principal); R92.343 Mammographic extreme density, bilateral breasts
CPT/HCPCS: 77063; 77067

== ENCOUNTER → 2025-09-29 15:10 | Outpatient (BNVA) | payer OTHER, SELFPAY | PROVIDERS: PCP Family Medicine; Visit Provider Registered Nurse Neonatal Intensive Care | DX: R51.9 Headache, unspecified (principal) | CPT/HCPCS: 87400; 87426 ==

== ENCOUNTER 2025-09-30 18:53 | Emergency (ER) | payer OTHER, SELFPAY ==
[2025-09-30] VITALS (10 sets, daily range): BP systolic 148–182; BP diastolic 88–108; PULSE 79–97; RESP 12–21; TEMP 36.8; O2SAT 94–100; BMI 33.6
--- NOTE | 2025-09-30 19:01 | ECG_ITS ---
[facility] Date: 2025-09-30 Pat Name: Jessica Barrett Department: Room: Gender: Female Medical Laboratory Manager: : 1975 Requested By: Aquilino Figueroa Order Number: [id number] Rebecca MD: MAGY MENDOZA Measurements Intervals [place] Rate: 100 P: 36 WI: 152 QRS: 12 QRSD: 89 T: 29 QT: 335 QTc: 433 Interpretive Statements SINUS TACHYCARDIA ABNORMAL RHYTHM ECG No previous ECG available for comparison Electronically Signed On 10-01-2025 18:39:35 TOMB MAKER HELPER by MAGY MENDOZA [email or web address]
--- NOTE | 2025-09-30 19:36 | XRR_ITS ---
PROCEDURE INFORMATION: Exam: XR Chest Exam date and time: 09/30/2025 8:20 PM Age: 50 years old Clinical indication: Shortness of breath; Chest pressure; Chest pain with SOB and tachycardia. History of pe. TECHNIQUE: Imaging protocol: Radiologic exam of the chest. Views: 1 view. COMPARISON: CT angio chest w abd pel w con 05/04/2019 8:24 AM FINDINGS: Lungs: Unremarkable. No consolidation. Pleural spaces: Unremarkable. No pleural effusion. No pneumothorax. Heart/Mediastinum: Unremarkable. No cardiomegaly. Bones/joints: Unremarkable. XR/XR chest 1V portable [id number] IMPRESSION: No acute findings.
--- NOTE | 2025-09-30 19:49 | CTR_ITS ---
PROCEDURE INFORMATION: Exam: CTA Chest With Contrast Exam date and time: 09/30/2025 8:30 PM Age: 50 years old Clinical indication: Shortness of breath; Chest pressure; Chest pain with SOB and tachycardia. History of pe. ; Additional info: Chest pain HX of pe TECHNIQUE: Imaging protocol: Computed tomographic angiography of the chest with contrast. Exam focused on the arteries. 3D rendering (Not supervised by radiologist): MIP and/or 3D reconstructed images were created by the technologist. Radiation optimization: All CT scans at this facility use at least one of these dose optimization techniques: automated exposure control; mA and/or kV adjustment per patient size (includes targeted exams where dose is matched to clinical indication); or iterative reconstruction. Contrast material: OMNI 350; Contrast volume: 52 ml; Contrast route: INTRAVENOUS (IV); COMPARISON: CT angio chest w abd pel w con 05/04/2019 8:24 AM RADIATION DOSE METRICS: Total DLP (mGy-cm): 347.35 FINDINGS: Pulmonary arteries: No evidence of pulmonary artery emboli. Aorta: Minimal scattered calcific atheromatous disease of the thoracic aorta. Thyroid: Thyroid is normal. Lungs: No focal consolidation. Pleural spaces: No pleural effusion. No pneumothorax. Heart: Heart is normal in size. No pericardial effusion. Lymph nodes: No distinct pathologically enlarged lymphadenopathy. Bones/joints: No acute osseous findings. Soft tissues: Visualized superficial soft tissues are within normal limits. CT/CT angio chest PE protcl [id number] IMPRESSION: No acute pathologic findings in the chest.
[2025-09-30 19:51] LABS: Hematocrit 46.5 % (36-47); Hemoglobin 15.70 g/dL (11.27-16.99); Mean Corpuscular HGB Conc 33.8 g/dL (30-55); Mean Corpuscular Hemoglobin 27.4 pg (27-33); Mean Corpuscular Volume 81.2 fl (85-98); Nucleated Red Blood Cells % 0 %; Platelet Count 298 10^3/cmm (157-399); Red Blood Count 5.73 10^6/uL (3.85-5.65); White Blood Count 7.97 10^3/uL (3.29-11.43)
[2025-09-30 20:00] LABS: Troponin(5th) Baseline < 6 ng/L (0-10)
[2025-09-30] MEDS: metoprolol tartrate 1 mg/1 mL SDV 5 mL 5 MG IVP (20:01)
[2025-09-30 20:09] LABS: Alanine Aminotransferase 10 U/L (0-33); Albumin Level 4.7 g/dL (3.5-5.2); Alkaline Phosphatase 101 U/L (35-105); Anion Gap 16.4 (5-19); Aspartate Amino Transferase 14 U/L (0-32); Blood Urea Nitrogen 8 mg/dL (6-20); Calcium 9.6 mg/dL (8.5-10.5); Carbon Dioxide 27 mmol/L (22-29); Chloride 101 mmol/L (98-107); Globulin 2.8 g/dL (1.3-4.6); Glucose 94 mg/dL (65-115); NT Pro B Type Natriuretic Pept 67 pg/mL (0-125); Osmolality Calculated 290 mOsm/kg (285-295); Potassium 3.4 mmol/L (3.5-5.1); Sodium 141 mmol/L (136-145); Total Protein 7.5 g/dL (6.6-8.7)
[2025-09-30 20:21] LABS: Glucose Urine UA Negative (Normal); Nitrate Urine Negative (Negative); Specific Gravity, Urine 1.011 (1.005-1.030)
[2025-09-30 20:26] LABS: Add Urine Microscopic? YES
[2025-09-30] MEDS: iohexol 350 mg/mL 500 mL Btl (per mL) IV (20:32)
[2025-09-30 20:55] LABS: Thyroid Stimulating Hormone 0.72 uIU/mL (0.27-4.20)
--- NOTE | 2025-09-30 21:11 | ED_ITS ---
HPI - Chest Pain 2 General: Chief Complaint: Chest Pain Stated Complaint: Chest Pain, HBP HHR Time Seen by Provider: 09/30/25 19:38 History of Present Illness: Patient is a 50-year-old female presenting with chest pain, elevated blood pressure, and palpitations described as her heart pounding out of her chest. She reports significant concern due to her history of pulmonary embolism. Patient also complains of a splitting headache for the past 3-4 days, for which she sought care at an urgent care facility yesterday where she received injectable medication and subsequently took her migraine medication. She reports new onset shortness of breath, particularly noticeable when climbing one flight of stairs yesterday, which she normally does multiple times daily without difficulty. She notes this dyspnea has been intermittent over the past week, though less severe than her previous PE episode. Additionally, patient reports cough, congestion, and symptoms consistent with a possible sinus infection. She denies any recent medication changes to her antihypertensive regimen. Related Data Home Medications ?Medication ?Instructions ?Recorded ?Confirmed citalopram 40 mg tablet 40 mg PO DAILY 10/25/2402/18 Previous Rx's ?Medication ?Instructions ?Recorded potassium chloride 10 mEq 10 meq PO DAILY #30 tabs 12/20 tablet,extended release pantoprazole 40 mg tablet,delayed 40 mg PO DAILY #60 t abs 04/26/25 release buspirone 5 mg tablet See Rx Instructions .Route 1 11/06/24 .COMPLEX #360 tabs levothyroxine 150 mcg tablet See Rx Instructions .Rout e 09/12/25 .COMPLEX #90 tabs metoprolol succinate 25 mg See Rx Instructions .Route 09/26/25 tablet,extended release 24 hr .COMPLEX #90 tabs amoxicillin 875 mg-potassium 1 tab PO BID 7 days #14 t abs 09/29/25 clavulanate 125 mg tablet fluconazole 150 mg tablet 150 mg PO Q3D 2 doses #2 tab s 09/29/25 sumatriptan succinate 100 mg tablet 100 mg PO Q2H #30 tabs 09/29/25 amlodipine 10 mg tablet 10 mg PO DAILY #30 tabs 03/20 Allergies Allergy/AdvReac Type Severity Reaction Status Date / Time No Known Allergies Allergy Verified 09/30/25 19:07 [facility] ED 2 [facility]: Medical History (Updated 09/30/25 @ 21:15 by Aquilino Lehman DO) Depression with anxiety Hypothyroidism Hypertension Migraines History of pulmonary embolism Vitamin A deficiency Surgical History Status post colonoscopy (11/23/21) normal - 10 years History of bone marrow biopsy 2019-- negative for findings S/P cryotherapy of skin lesion History of section History of total abdominal hysterectomy (~2019) LAVH converted to EVER with diagnostic laparoscopy; Ovaries sparred Completed due to fibroids Hx of tonsillectomy History of carpal tunnel surgery Family History Mother Hypertension Family history of thyroid problem Father Hypertension Diabetes Grandfather No problems noted. Grandmother Diabetes Maternal grandmother Denies family history of Colon cancer Ovarian cancer CAD (coronary artery disease) Breast cancer Cancer Uterine cancer Stroke Social History Smoking and tobacco/nicotine status: never used tobacco/nicotine Alcohol intake: current Alcohol intake frequency: holidays/special occasions only Substance/Drug Use: never Additional social history: Tobacco use: denies Alcohol use: socially Drug use: denies Current gender identity: Female Female Reproductive History: Spontaneous abortions: No Physical Exam 2 Const: COMMON NORMALS: no acute distress GENERAL APPEARANCE: cooperative and anxious (Mild); not ill appearing and not frail appearing HENMT: COMMON NORMALS: normocephalic, atraumatic and Normal external nose present HEAD & SCALP: normocephalic and atraumatic FACE & SINUS: normal facial exam and face symmetric NOSE: Normal external nose present Eye: COMMON NORMALS: Equal, round and reactive pupils present and EOMs intact bilaterally PUPIL: Yes Equal, round and reactive pupils present Neck/C-Spine: GENERAL: Yes trachea midline Chest: CHEST: Yes Symmetrical chest wall rise Resp: COMMON NORMALS: normal respiratory effort, No retractions, No use of accessory muscles and clear to auscultation bilaterally AUSCULTATION: clear to auscultation bilaterally Cardio: COMMON NORMALS: regular rate and regular rhythm RATE: regular rate RHYTHM: regular rhythm GI: COMMON NORMALS: Normal to inspection, nondistended, normoactive bowel sounds present Extremity: COMMON NORMALS: no pedal edema Neuro: JADEN COMA SCALE: document GCS findings Jaden coma scale eye opening: Spontaneous [place] coma scale verbal response: Orientated [place] coma scale motor response: Obey commands [place] coma scale total score: 15 S ENSORY EXAM: Yes extremities (intact) Psych: COMMON NORMALS: speech normal SPEECH: Yes normal speech Skin: COMMON NORMALS: no rashes or lesions noted GENERAL SKIN EXAM: no rashes or lesions noted Course 2 Vital Signs: Vital signs: Vital Signs Temperature 98.2 F 09/30/25 18:57 Pulse Rate 82 09/30/25 21:25 Respiratory Rate 18 09/30/25 21:25 Blood Pressure 149/88 09/30/25 21:25 Pulse Oximetry 97 09/30/25 21:25 Oxygen Delivery Me thod Room Air 09/30/25 19:33 MDM - Chest Pain Medical Decision Making Blood pressure is improved significantly. Heart rate is 86. Blood pressure 149/88. Sats are 97% on room air with respirations 14. Laboratory shows a normal CBC. Essentially normal BMP. D-dimer is negative. Urinalysis is negative. Troponin is nondetectable. TSH is 0.72. CTA of the chest is done due to history of pulmonary embolism, and no acute pathologic findings are noted. May be anxiety versus symptomatic hypertension. She stable for discharge at this point. Will prescribe amlodipine for breakthrough blood pressure changes. Outpatient follow-up. Return for worsening symptoms. Lab Data 09/30/25 19:21 09/30/25 19:21 Radiology Impressions Chest X-Ray 09/30/25 19:36 IMPRESSION: No acute findings. Chest CTA 09/30/25 19:49 IMPRESSION: No acute pathologic findings in the chest. Laboratory Results WBC 7.97 10^3/uL (3.29-11.43) 09/30/25 19:21 RBC 5.73 10^6/uL (3.85-5.65) H 09/30/25 19:21 Hgb 15.70 g/dL (11.27-16.99) 09/30/25 19:21 Hct 46.5 % (36-47) 09/30/25 19:21 MCV 81.2 fl (85-98) L 09/30/25 19:21 MCH 27.4 pg (27-33) 09/30/25 19:21 MCHC 33.8 g/dL (30-55) 09/30/25 19:21 RDW 12.1 % (12.1-15.1) 09/30/25 19:21 Plt Count 298 10^3/cmm (157-399) 09/30/25 19:21 MPV 10.9 fL (7.4-10.4) H 09/30/25 19:21 Neut % (Auto) 51.9 % 09/30/25 19:21 Lymph % (Auto) 36.4 % 09/30/25 19:21 [place] % (Auto) 6.6 % 09/30/25 19:21 Eos % (Auto) 4.1 % 09/30/25 19:21 Baso % (Auto) 0.6 % 09/30/25 19:21 Neut # (Auto) 4.13 10^3/uL (1.8-7.7) 09/30/25 19:21 Lymph # (Auto) 2.9 10^3/uL (0.8-4.8) 09/30/25 19:21 [place] # (Auto) 0.5 10^3/uL (0.2-0.9) 09/30/25 19:21 Eos # (Auto) 0.3 10^3/uL (0.0-0.8) 09/30/25 19:21 Baso # (Auto) 0.1 10^3/uL (0.0-0.1) 09/30/25 19:21 Nucleated RBC % (auto) 0 % 09/30/25 19:21 Nucleated RBCs # 0.0 /100WBC 09/30/25 19:21 D-Dimer 0.38 ug/mLFEU (0-0.59) 09/30/25 19:21 Sodium 141 mmol/L (136-145) 09/30/25 19:21 Potassium 3.4 mmol/L (3.5-5.1) L 09/30/25 19:21 Chloride 101 mmol/L (98-107) 09/30/25 19:21 Carbon Dioxide 27 mmol/L (22-29) 09/30/25 19:21 Anion Gap 16.4 (5-19) 09/30/25 19:21 BUN 8 mg/dL (6-20) 09/30/25 19:21 Creatinine 0.9 mg/dL (0.5-0.9) 09/30/25 19:21 GFR Calculation 66.3 mL/min (90-130) L 09/30/25 19:21 Glucose 94 mg/dL (65-115) 09/30/25 19:21 Calculated Osmolality 290 mOsm/kg (285-295) 09/30/25 19:21 Calcium 9.6 mg/dL (8.5-10.5) 09/30/25 19:21 Total Bilirubin 0.4 mg/dL (0.15-1.2) 09/30/25 19:21 AST 14 U/L (0-32) 09/30/25 19:21 ALT 10 U/L (0-33) 09/30/25 19:21 Alkaline Phosphatase 101 U/L (35-105) 09/30/25 19:21 Troponin T Baseline < 6 ng/L (0-10) 09/30/25 19:21 Troponin T 120 Minute < 6.0 ng/L (0-10) 09/30/25 21:10 Delta Troponin T 0 ABS# (0-10) 09/30/25 21:10 NT-Pro-B Natriuret Pep 67 pg/mL (0-125) 09/30/25 19:21 Total Protein 7.5 g/dL (6.6-8.7) 09/30/25 19:21 Albumin 4.7 g/dL (3.5-5.2) 09/30/25 19:21 Globulin 2.8 g/dL (1.3-4.6) 09/30/25 19: TSH 0.72 uIU/mL (0.27-4.20) 09/30/25 19:21 Urine Color Yellow (Yellow) 09/30/25 20:00 Urine Appearance Cloudy (CLEAR) A 09/30/25 20:00 Urine pH 6.0 (5-7) 09/30/25 20:00 Ur Specific [place] 1.011 (1.005-1.030) 09/30/25 20:00 Urine Protein Negative (Negative) 09/30/25 20:00 Urine Glucose (UA) Negative (Normal) 09/30/25 20:00 Urine Ketones Negative (Negative) 09/30/25 20:00 Urine Blood Negative (Negative) 09/30/25 20:00 Urine Nitrate Negative (Negative) 09/30/25 20:00 Urine Bilirubin Negative (Negative) 09/30/25 20:00 Urine Urobilinogen 1.0 mg/dL (Negative) 09/30/25 20:00 Ur Leukocyte Esterase Trace (Negative) A 09/30/25 20:00 Urine RBC 0-2 /hpf (0-2) 09/30/25 20:00 Urine WBC 0-5 /hpf (0-5) 09/30/25 20:00 Ur Squamous Epith Cells 11-20 /hpf (0-5) H 09/30/25 20:00 Amorphous Sediment Not Reportable 09/30/25 20:00 Urine Bacteria None seen /hpf (NONE) 09/30/25 20:00 Hyaline Casts 0.40 /lpf 09/30/25 20:00 All radiology interpretation(s) finalized by discharge EKG Data EKG 1: Interpretation: EKG time 1901, read 1905. Sinus tachycardia rate 100. [place] is normal. Intervals are normal. QTc is 392. No ST wave changes. Discharge Plan Discharge Patient Disposition: Home Clinical Impression: Chest pain Hypertension Qualifiers: Hypertension type: primary hypertension Qualified Code(s): I10 - Essential (primary) hypertension Condition: Stable Prescriptions: New amlodipine 10 mg tablet 10 mg PO DAILY Qty: 30 0RF No Action sumatriptan succinate 100 mg tablet 100 mg PO Q2H Qty: 30 0RF fluconazole 150 mg tablet 150 mg PO Q3D Qty: 2 0RF amoxicillin-pot clavulanate 875-125 mg tablet 1 tab PO BID 7 Days Qty: 14 0RF potassium chloride 10 mEq tablet extended release 10 meq PO DAILY Qty: 30 5RF pantoprazole 40 mg tablet,delayed release (DR/EC) 40 mg PO DAILY Qty: 60 2RF buspirone 5 mg tablet See Rx Instructions .ROUTE .COMPLEX Qty: 360 1RF Dose Instruction: TAKE ONE TABLET BY MOUTH TWICE DAILY Rx Instructions: TAKE ONE TABLET BY MOUTH TWICE DAILY levothyroxine 150 mcg tablet See Rx Instructions .ROUTE .COMPLEX Qty: 90 1RF Dose Instruction: TAKE ONE TABLET BY MOUTH DAILY Rx Instructions: TAKE ONE TABLET BY MOUTH DAILY metoprolol succinate 25 mg tablet extended release 24 hr See Rx Instructions .ROUTE .COMPLEX Qty: 90 1RF Dose Instruction: TAKE ONE TABLET BY MOUTH EVERY DAY Rx Instructions: TAKE ONE TABLET BY MOUTH EVERY DAY citalopram 40 mg tablet 40 mg PO DAILY Discharge Orders: Discharge ED (Routine); Ordered 09/30/25 Ordered By: Aquilino Lehman Referrals: Ozzie Alvares DO [Primary Care Provider, Family Practice] Patient Instructions: Chest Pain (ED), Hypertension (ED), Opioid Safety, Pain Management, Patient Portal & [place] Instructions Activity Restrictions/Additional Instructions: Check your blood pressures twice daily. If numbers are staying above 150/90, you may take the medication prescribed from the ER. Log your numbers, and follow-up with your doctor. Return for worsening pain in the chest, shortness of breath, other concerning symptoms. Call Friday for a follow-up appointment. Print Language: Barbadian Coding Level of Care Code ED Fire Assistant for Chg Fwd Heart Score HEART Score Components History: Slightly Suspicous EKG: Normal Age: 45-64 yrs Risk Factors: 1 or 2 Risk Factors Troponin: Baseline Trop <16 ng/L HEART Score RESULT HEART Score: 2
== END 2025-09-30 21:24 | disposition home or self-care (01) ==
PROVIDERS: Emergency Provider Emergency Medicine; PCP Family Medicine
DX: R07.9 Chest pain, unspecified (principal); I10 Essential (primary) hypertension
CPT/HCPCS: 36415; 71045; 71275; 80053; 81001; 83880; 84443; 84484; 85025; 85378; 93005; 96374; 96375; 99285; J3490; J9999